=== PATIENT | male | born 1960 | race American Indian/Alaskan Native ===

== ENCOUNTER 2021-02-18 21:54 | Emergency (ER) | payer SELFPAY | END 2021-02-19 19:00 | disposition left against medical advice (07) | LOC: ED 21:54 | DX: M25.569 Pain in unspecified knee (principal); Z53.21 Procedure and treatment not carried out due to patient leaving prior to being seen by health care provider ==

== ENCOUNTER 2021-04-26 07:49 | Emergency (ER) | payer SELFPAY ==
--- NOTE | 2021-04-26 08:00 | Emergency Department Report ---
ED Lower Extremity HPI - General Chief Complaint: Extremity Injury, Lower Stated Complaint: RIGHT LEG PAIN Time Seen by Provider: 04/26/21 07:56 Source: patient Mode of arrival: Ambulatory Limitations: No Limitations - History of Present Illness Initial Comments: The patient was evaluated in the emergency department for symptoms described in the history of present illness. He/she was evaluated in the context of the global COVID-19 pandemic, which necessitated consideration that the patient might be at risk for infection with the virus that causes COVID-19. Institutional protocols and algorithms that pertain to the evaluation of patients at risk for COVID-19 are in a state of rapid change based on information released by regulatory bodies including the CDC and federal and state organizations. These policies and algorithms were followed during the patient's care in the emergency department. Please note that these policies, procedures and recommendations changed on a rapid basis. 61-year-old -[place] male presents to the emergency room complaining of acute on chronic right knee pain. Patient denies any recent injury. States that the pain is worse with standing and walking and better with alcohol. 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 He reports a past history of knee injury. Patient denies any swelling to his right knee. States he took Tylenol last night probably around 10 PM. Has taken nothing else. Denies any recent trauma. MD Complaint: leg injury Onset/Timin -: week(s) Injury: Knee: Right Severity: severe Severity scale (0 -10): 9 Worsens With: weight bearing, movement - Related Data Previous Rx's Medication Instructions Recorded Last Taken Type traMADoL [Ultram 50 MG tab] 50 mg PO Q6HR PRN #12 tablet 04/26/21 Unknown Rx Allergies Allergy/AdvReac Type Severity Reaction Status Date / Time No Known Allergies Allergy Verified 04/26/21 09:00 ED Review of Systems ROS: Stated complaint: RIGHT LEG PAIN Other details as noted in HPI ED Past Medical Hx - Past Medical History Previous Medical History?: No Additional medical history: Chronic knee pain - Surgical History Additional Surgical History: left elbow - Social History Smoking Status: Current Every Day Smoker Substance Use Type: Alcohol - Medications Home Medications: Home Medications Medication Instructions Recorded Confirmed Last Taken Type traMADoL [Ultram 50 MG tab] 50 mg PO Q6HR PRN #12 tablet 04/26/21 Unknown Rx ED Physical Exam - General Limitations: No Limitations General appearance: alert, in no apparent distress - Head Head exam: Present: atraumatic, normocephalic - Eye Eye exam: Present: normal appearance - ENT ENT exam: Present: mucous membranes moist - Neck Neck exam: Present: normal inspection - Respiratory Respiratory exam: Present: normal lung sounds bilaterally. Absent: respiratory distress - Cardiovascular Cardiovascular Exam: Present: regular rate, normal rhythm. Absent: systolic murmur, diastolic murmur, rubs, gallop - GI/Abdominal GI/Abdominal exam: Present: soft, normal bowel sounds - Rectal Rectal exam: Present: deferred - Extremities Exam Extremities exam: Present: normal inspection - Expanded Lower Extremity Exam Right Knee exam: Present: full ROM, tenderness. Absent: swelling Lower Leg exam: Present: normal inspection, full ROM Ankle exam: Present: normal inspection, full ROM Neuro vascular tendon exam: Present: no vascular compromise - Back Exam Back exam: Present: normal inspection - Neurological Exam Neurological exam: Present: alert, oriented X3 - Psychiatric Psychiatric exam: Present: normal affect, normal mood - Skin Skin exam: Present: warm, dry, intact, normal color. Absent: rash ED Course Vital Signs 04/26/21 04/26/21 07:53 07:56 Temperature 97.9 F 97.9 F Pulse Rate 86 Respiratory 16 16 Rate Blood Pressure 171/110 [Right] O2 Sat by Pulse 99 Oximetry ED Lower Extremity MDM - Radiology Data Radiology results: [place] [address] XRay Report Signed with Estrellita Patient: ALFONSO MUÑOZ MR#: [id number] : 1960 Acct:[id number] Age/Sex: 61 / M ADM Date: 04/26/21 Loc: ED Attending Dr: Ordering Physician: NITA ASH Date of Service: 04/26/21 Procedure(s): XR knee 1-2V RT Accession Number(s): [id number] cc: NITA ASH Fluoro Time In Minutes: ADDENDUM Addendum: Osseous excrescence could also reflect osteophyte related to bulky osteophyte formation at the superior patella. Signer Name: Felipe Vernon MD Signed: 04/26/2021 9:09 AM Workstation Name: [id number] Addendum Transcribed By: ERWIN Addendum Dictated By: FELIPE VERNON MD Addendum Electronically Authenticated By: FELIPE VERNON MD Addendum Signed Date/Time: 04/26/21908 DD/ /09/908 TD/TT: / Right knee radiograph, 2 views. HISTORY: Degenerative right knee. COMPARISON: None FINDINGS: Moderate to severe right knee osteoarthritis, preferentially involving the medial and patellofemoral compartments. Small osseous excrescence arising from the anterior distal femur, most likely reflects osteochondroma. No acute fracture or malalignment. Trace joint effusion. IMPRESSION: Moderate to severe osteoarthritis of the right knee. No acute abnormality. Signer Name: Felipe Vernon MD Signed: 04/26/2021 9:05 AM Workstation Name: [id number] Transcribed By: ERWIN Dictated By: FELIPE VERNON MD Electronically Authenticated By: FELIPE VERNON MD Signed Date/Time: 04/26/21904 DD/ 2 TD/TT: -- [Addendum Report Added by FELIPE VERNON at 2021-04-26 09:16:10] [facility] [address] [place] [address] XRay Report Signed Patient: ALFONSO MUÑOZ MR#: [id number] : 1960 Acct:[id number] Age/Sex: 61 / M ADM Date: 04/26/21 Loc: ED Attending Dr: Ordering Physician: NITA ASH Date of Service: 04/26/21 Procedure(s): XR knee 1-2V RT Accession Number(s): [id number] cc: NITA ASH Fluoro Time In Minutes: Right knee radiograph, 2 views. HISTORY: Degenerative right knee. COMPARISON: None FINDINGS: Moderate to severe right knee osteoarthritis, preferentially involving the medial and patellofemoral compartments. Small osseous excrescence arising from the anterior distal femur, most likely reflects osteochondroma. No acute fracture or malalignment. Trace joint effusion. IMPRESSION: Moderate to severe osteoarthritis of the right knee. No acute abnormality. Signer Name: Felipe Vernon MD Signed: 04/26/2021 9:05 AM Workstation Name: [id number] Transcribed By: JS Dictated By: FELIPE VERNON MD Electronically Authenticated By: FELIPE VERNON MD Signed Date/Time: 04/26/21904 DD/ 2 TD/TT: Print Cancel - Medical Decision Making 61-year-old -[place] male presents to the emergency room complaining of acute on chronic right knee pain. Patient denies any recent injury. States that the pain is worse with standing and walking and better with alcohol. 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 He reports a past history of knee injury. Patient denies any swelling to his right knee. States he took Tylenol last night probably around 10 PM. Has taken nothing else. Denies any recent trauma. X-ray of right knee shows moderate to severe osteoarthritis. Discussed the patient placed him on tramadol referral to orthopedist. Critical care attestation.: If time is entered above; I have spent that time in minutes in the direct care of this critically ill patient, excluding procedure time. ED Disposition Clinical Impression: Osteoarthritis of right knee Disposition: 01 HOME / SELF CARE / HOMELESS Is pt being admited?: No Does the pt Need Aspirin: No Condition: Stable Instructions: Osteoarthritis, Arthritis, [id number] Additional Instructions: X-ray of right knee shows moderate to severe osteoarthritis. Recommend to follow-up with an orthopedic provider for further evaluation and options. Take pain medication as needed do not operate heavy machinery while taking tramadol. I recommend incorporating ibuprofen 3 times a day as needed. Prescriptions: traMADoL [Ultram 50 MG tab] 50 mg PO Q6HR PRN #12 tablet PRN Reason: Pain Referrals: PRIMARY MD CINDI [Primary Care Provider] - 3-5 Days TERSEO KRISHNA MD [Staff Physician] - 3-5 Days Forms: Work/School Release Form(ED) Time of Disposition: 10:07
--- NOTE | 2021-04-26 09:09 | XRay Report ---
Right knee radiograph, 2 views. HISTORY: Degenerative right knee. COMPARISON: None FINDINGS: Moderate to severe right knee osteoarthritis, preferentially involving the medial and hodge lofemoral compartments. Small osseous excrescence arising from the anterior distal femur, most likely reflects osteochondroma. No acute fracture or malalignment. Trace joint effusion. IMPRESSION: Moderate to severe osteoarthritis of the right knee. No acute abnormality. Signer Name: Rafael Vernon MD Signed: 04/26/2021 9:05 AM Workstation Name: [id number]
[2021-04-26 10:20] VITALS: BP 157/98
== END 2021-04-26 10:21 | disposition home or self-care (01) ==
LOC: ED 07:49
DX: M17.11 Unilateral primary osteoarthritis, right knee (principal); G89.29 Other chronic pain; F17.200 Nicotine dependence, unspecified, uncomplicated; Z72.89 Other problems related to lifestyle; Z79.899 Other long term (current) drug therapy
CPT/HCPCS: 99283

== ENCOUNTER 2021-07-02 13:11 | Emergency (ER) | payer SELFPAY ==
[2021-07-02 13:16] VITALS: BP 125/92
--- NOTE | 2021-07-02 13:16 | Event Note ---
ED Screening Note ED Screening Note: pt had cardiac cath on 06/23/2021 at [facility] MAIN states that there is an open wound in his groin from cath site no drainage or bleeding pt found to have HR of 141 bpm pt has not taken his medications today This initial assessment/diagnostic orders/clinical plan/treatment(s) is/are subject to change based on patients health status, clinical progression and re- assessment by fellow clinical providers in the ED. Further treatment and workup at subsequent clinical providers discretion. Patient/guardian urged not to elope from the ED as their condition may be serious if not clinically assessed and managed. Initial orders include: labs, ekg
[2021-07-02 13:41] LABS: Basophils # (Auto) 0.1 K/mm3 (0.0-0.1); Basophils % (Auto) 0.7 % (0.0-1.8); Eosinophils # (Auto) 0.1 K/mm3 (0.0-0.4); Eosinophils % (Auto) 0.7 % (0.0-4.3); Hematocrit 53.4 % (35.5-45.6); Hemoglobin 17.5 gm/dl (11.8-15.2); Lymphocytes # (Auto) 1.4 K/mm3 (1.2-5.4); Lymphocytes % (Auto) 20.1 % (13.4-35.0); Mean Corpuscular HGB Conc 33 % (32-34); Mean Corpuscular Volume 93 fl (84-94); Monocytes # (Auto) 1.1 K/mm3 (0.0-0.8); Monocytes % (Auto) 15.2 % (0.0-7.3); Platelet Count 412 K/mm3 (140-440); Red Blood Count 5.76 M/mm3 (3.65-5.03); Red Cell Distribution Width 15.6 % (13.2-15.2)
[2021-07-02 13:50] LABS: INR 0.97 (0.87-1.13)
[2021-07-02 13:51] LABS: Partial Thromboplastin Time 27.5 Sec. (24.2-36.6)
[2021-07-02 14:10] LABS: Alanine Aminotransferase 79 units/L (7-56); BUN/Creatinine Ratio 20; Blood Urea Nitrogen 16 mg/dL (9-20); Calcium 9.2 mg/dL (8.4-10.2); Hemolysis Index 13
[2021-07-02 14:14] LABS: Chol/HDL Ratio 2.8 %
--- NOTE | 2021-07-02 15:41 | Vascular Lab Report ---
VL arterial duplex LE RT INDICATION / CLINICAL INFORMATION: rule out pseudoaneurysm. TECHNIQUE: B-mode and Doppler imaging was used. COMPARISON: None available. FINDINGS: Normal triphasic waveforms within the right lower extremity arterial system. No pseudoaneurysm or groin hematoma. IMPRESSION: No significant abnormality. No evidence of pseudoaneurysm. Signer Name: Rafael Vernon MD Signed: 07/02/2021 3:37 PM Workstation Name: [id number]
--- NOTE | 2021-07-02 16:18 | Emergency Department Report ---
ED Extremity Problem HPI - General Chief complaint: Extremity Problem,Nontraumatic Stated complaint: POST HEART CATH WOUND ISSUE Time Seen by Provider: 07/02/21 13:23 Source: patient Mode of arrival: Ambulatory Limitations: No Limitations - History of Present Illness Initial comments: pt gage de [place]ón few days ago for PE and site is hurting nof ever no bleeding MD Complaint: extremity pain -: Gradual, days(s) Location: right, lower extremity History of Same: No Severity scale (0 -10): 2 Quality: aching Consistency: constant Improves with: nothing - Related Data Previous Rx's Medication Instructions Recorded Last Taken Type traMADoL [Ultram 50 MG tab] 50 mg PO Q6HR PRN #12 tablet 04/26/21 Unknown Rx Acetaminophen/Codeine [Tylenol 1 tab PO Q6H PRN #10 tab 07/02/21 Unknown Rx /Codeine # 3 tab] cephALEXin [Keflex] 500 mg PO Q12HR #14 cap 07/02/21 Unknown Rx Allergies Allergy/AdvReac Type Severity Reaction Status Date / Time No Known Allergies Allergy Verified 04/26/21 09:00 ED Review of Systems ROS: Stated complaint: POST HEART CATH WOUND ISSUE Other details as noted in HPI Constitutional: denies: chills, fever Eyes: denies: eye pain, eye discharge, vision change ENT: denies: ear pain, throat pain Respiratory: denies: cough, shortness of breath, wheezing Cardiovascular: denies: chest pain, palpitations Endocrine: no symptoms reported Gastrointestinal: denies: abdominal pain, nausea, diarrhea Genitourinary: denies: urgency, dysuria Musculoskeletal: denies: back pain, joint swelling, arthralgia Skin: denies: rash, lesions Neurological: denies: headache, weakness, paresthesias Psychiatric: denies: anxiety, depression Hematological/Lymphatic: denies: easy bleeding, easy bruising ED Past Medical Hx - Past Medical History Previous Medical History?: Yes Additional medical history: Chronic knee pain - Surgical History Additional Surgical History: left elbow - Social History Smoking Status: Current Every Day Smoker Substance Use Type: Alcohol - Medications Home Medications: Home Medications Medication Instructions Recorded Confirmed Last Taken Type traMADoL [Ultram 50 MG tab] 50 mg PO Q6HR PRN #12 tablet 04/26/21 Unknown Rx Acetaminophen/Codeine [Tylenol 1 tab PO Q6H PRN #10 tab 07/02/21 Unknown Rx /Codeine # 3 tab] cephALEXin [Keflex] 500 mg PO Q12HR #14 cap 07/02/21 Unknown Rx ED Physical Exam - General Limitations: No Limitations General appearance: alert, in no apparent distress - Head Head exam: Present: atraumatic, normocephalic - Eye Eye exam: Present: normal appearance - ENT ENT exam: Present: mucous membranes moist - Neck Neck exam: Present: normal inspection - Respiratory Respiratory exam: Present: normal lung sounds bilaterally. Absent: respiratory distress - Cardiovascular Cardiovascular Exam: Present: regular rate, normal rhythm. Absent: systolic murmur, diastolic murmur, rubs, gallop - GI/Abdominal GI/Abdominal exam: Present: soft, normal bowel sounds - Rectal Rectal exam: Present: deferred - Extremities Exam Extremities exam: Present: normal inspection - Back Exam Back exam: Present: tenderness, rash noted, other - Neurological Exam Neurological exam: Present: alert, oriented X3 - Psychiatric Psychiatric exam: Present: normal affect, normal mood - Skin Skin exam: Present: warm, dry, intact, normal color. Absent: rash ED Course Vital Signs 07/02/21 13:13 Temperature 97.4 F L Pulse Rate 61 Respiratory 18 Rate Blood Pressure 125/92 [Right] O2 Sat by Pulse 96 Oximetry - Reevaluation(s) Reevaluation #1: 07/02/21 16:17 work up neg , us negative for psycudo anurysm, vss no distress ED Medical Decision Making - Lab Data Result diagrams: 07/02/21 13:21 07/02/21 13:21 Critical care attestation.: If time is entered above; I have spent that time in minutes in the direct care of this critically ill patient, excluding procedure time. ED Disposition Clinical Impression: Wound of right leg Disposition: HOME / SELF CARE / HOMELESS Is pt being admited?: No Does the pt Need Aspirin: No Condition: Stable Instructions: Wound Care, Adult Prescriptions: cephALEXin [Keflex] 500 mg PO Q12HR #14 cap Acetaminophen/Codeine [Tylenol /Codeine # 3 tab] 1 tab PO Q6H PRN #10 tab PRN Reason: Pain, Moderate (4-6) Referrals: PRIMARY CARE,MD [Primary Care Provider] - 3-5 Days
== END 2021-07-02 16:38 | disposition home or self-care (01) ==
LOC: ED 13:11
DX: S81.801A Unspecified open wound, right lower leg, initial encounter (principal); F17.200 Nicotine dependence, unspecified, uncomplicated; F10.20 Alcohol dependence, uncomplicated; X58.XXXA Exposure to other specified factors, initial encounter; Y93.89 Activity, other specified; Y92.89 Other specified places as the place of occurrence of the external cause; Y99.8 Other external cause status
CPT/HCPCS: 36415; 80053; 80061; 82550; 83735; 84484; 85025; 85610; 85730; 99284